=== PATIENT | male | born 1995 | race Two or more races ===

== ENCOUNTER 2024-06-15 03:44 | Emergency (ER) | payer SELFPAY ==
[~2024-06-15] VITALS: Ht 185.4 cm; Wt 95.0 kg
[2024-06-15 03:44] VITALS: BP 134/81; PULSE 69; RESP 16; O2SAT 93
== END 2024-06-15 05:33 | disposition left against medical advice (07) ==
LOC: ER 03:44
DX: S61.215A Laceration without foreign body of left ring finger without damage to nail, initial encounter (principal); Z53.21 Procedure and treatment not carried out due to patient leaving prior to being seen by health care provider; X58.XXXA Exposure to other specified factors, initial encounter; Y93.89 Activity, other specified; Y92.89 Other specified places as the place of occurrence of the external cause; Y99.8 Other external cause status